=== PATIENT | male | born 1970 | race African-American/Black ===

== ENCOUNTER 2020-06-28 10:43 | Emergency (ER) | payer OTHER ==
[2020-06-28 12:25] LABS: Absolute Lymphocytes (CBC) 1.1 K/uL (0.7-4.9); Basophils % 0.3 % (0-1.3); Hematocrit 43.2 % (39.6-49.0); Lymphocytes % 20.7 % (15.3-44.8); MPV 9.6 fL (7.6-11.3); RBC Red Blood Cell Count 5.37 M/uL (4.33-5.43)
[2020-06-28 12:31] LABS: Protime INR 1.14
[2020-06-28 12:46] LABS: ALT/SGPT 25 U/L (12-78); AST/SGOT 27 U/L (15-37); Albumin 4.4 g/dL (3.4-5.0); Alkaline Phosphatase 56 U/L (45-117); BUN Blood Urea Nitrogen 19 mg/dL (7-18); Bicarbonate 31 mmol/L (21-32); Bilirubin Direct < 0.1 mg/dL (0-0.2); Bilirubin Total 0.3 mg/dL (0.2-1.0); Glucose Level 96 mg/dL (74-106); Magnesium 2.2 mg/dL (1.8-2.4); NT PRO-BNP 19 pg/mL (<125); Potassium 4.3 mmol/L (3.5-5.1); Protein, Total 8.5 g/dL (6.4-8.2); Sodium Level 140 mmol/L (136-145); Troponin (Emerg Dept Use Only) < 0.02 ng/mL (0.0-0.045)
[2020-06-28] MEDS ORDERED: ASPIRIN 81 MG CHEWABLE TABLET ONE (13:12)
--- NOTE | 2020-06-28 13:34 | RAD REPORT ---
EXAM DESCRIPTION: [facility]over[facility] Single View06/28/2020 1:27 pm CLINICAL HISTORY: Chest pain COMPARISON: none FINDINGS: The lungs appear clear of acute infiltrate. The heart is normal size IMPRESSION: No acute abnormalities displayed
[2020-06-28] MEDS ORDERED: KETOROLAC 30 MG/ML INJ ONE (14:18)
--- NOTE | 2020-06-28 16:32 | ER ---
Nurse's Notes [facility] Name: Haris Wong Age: 50 yrs Sex: Male : 1970 Arrival Date: 06/28/2020 Time: 10:45 Bed 15 Private MD: Popeye Edgar E Diagnosis: Other chest pain Presentation: 06/28 10:53 Chief complaint: Patient states: was having LUQ and left rib pain since Saturday , feels iw sore like a bruise, denies injury, went to see Tala Ferreira today and was told to come to ER for abnormal EKG. Coronavirus screen: At this time, the client does not indicate any symptoms associated with coronavirus-19. Ebola Screen: Patient negative for fever greater than or equal to 101.5 degrees Fahrenheit, and additional compatible Ebola Virus Disease symptoms Patient denies exposure to infectious person. Patient denies travel to an Ebola-affected area in the 21 days before illness onset. No symptoms or risks identified at this time. Initial Sepsis Screen: Does the patient meet any 2 criteria? No. Patient's initial sepsis screen is negative. Does the patient have a suspected source of infection? No. Patient's initial sepsis screen is negative. Risk Assessment: Do you want to hurt yourself or someone else? Patient reports no desire to harm self or others. Onset of symptoms was June 26, 2020. 10:53 Method Of Arrival: Wheelchair 10:53 Acuity: SELMA 3 iw Historical: - Allergies: 10:56 No Known Allergies; iw - Home Meds: 10:56 None [Active]; iw - PMHx: 10:56 None; iw - PSHx: 10:56 None; iw - Immunization history:: Adult Immunizations. - Social history:: Smoking status: Patient denies any tobacco usage or history of. Screenin:50 Abuse screen: Denies threats or abuse. Nutritional screening: No deficits noted. tw2 Tuberculosis screening: No symptoms or risk factors identified. Fall Risk None identified. Assessment: 11:50 Reassessment: provider at bedside at this time. tw2 11:55 General: Appears in no apparent distress. slender, well groomed, Behavior is calm, tw2 cooperative, appropriate for age. Pain: Complains of pain in left rib area. Neuro: Level of Consciousness is awake, alert, obeys commands, Oriented to person, place, time, situation. Cardiovascular: Capillary refill < 3 seconds Patient's skin is warm and dry. Respiratory: Airway is patent Respiratory effort is even, unlabored, Respiratory pattern is regular, symmetrical. GI: No signs and/or symptoms were reported involving the gastrointestinal system. Abdomen is flat. : No signs and/or symptoms were reported regarding the genitourinary system. EENT: No signs and/or symptoms were reported regarding the EENT system. Derm: No signs and/or symptoms reported regarding the dermatologic system. Musculoskeletal: Range of motion: intact in all extremities. 12:30 Reassessment: Patient appears in no apparent distress at this time. No changes from tw2 previously documented assessment. Patient and/or family updated on plan of care and expected duration. Pain level reassessed. Patient is alert, oriented x 3, equal unlabored respirations, skin warm/dry/pink. 13:26 Reassessment: Patient appears in no apparent distress at this time. No changes from tw2 previously documented assessment. Patient and/or family updated on plan of care and expected duration. Pain level reassessed. Patient is alert, oriented x 3, equal unlabored respirations, skin warm/dry/pink. 13:32 Reassessment: provider at bedside at this time. tw2 14:21 Reassessment: Patient appears in no apparent distress at this time. No changes from tw2 previously documented assessment. Patient and/or family updated on plan of care and expected duration. Pain level reassessed. Patient is alert, oriented x 3, equal unlabored respirations, skin warm/dry/pink. 15:26 Reassessment: Patient appears in no apparent distress at this time. No changes from tw2 previously documented assessment. Patient and/or family updated on plan of care and expected duration. Pain level reassessed. Patient is alert, oriented x 3, equal unlabored respirations, skin warm/dry/pink. 16:49 Reassessment: Patient appears in no apparent distress at this time. No changes from tw2 previously documented assessment. Patient and/or family updated on plan of care and expected duration. Pain level reassessed. Patient is alert, oriented x 3, equal unlabored respirations, skin warm/dry/pink. Vital Signs: 10:53 BP 129 / 86; Pulse 68; Resp 16; Temp 98.6; Pulse Ox 100% on R/A; Weight 87.54 kg; iw Height 6 ft. 1 in. (185.42 cm); Pain 6/10; 12:30 BP 109 / 69; Pulse 61; Resp 17; Pulse Ox 100% on R/A; tw2 13:26 BP 109 / 73; Pulse 62; Resp 22; Pulse Ox 100% on R/A; tw2 14:21 BP 101 / 71; Pulse 64; Resp 22; Pulse Ox 100% on R/A; tw2 15:26 BP 133 / 73; Pulse 82; Resp 17; Pulse Ox 95% on R/A; tw2 16:48 BP 102 / 71; Pulse 61; Resp 20; Pulse Ox 100% on R/A; tw2 10:53 Body Mass Index 25.46 (87.54 kg, 185.42 cm) iw ED Course: 10:45 Patient arrived in ED. ag5 10:46 Popeye Edgar MD is Private Physician. ag5 10:55 Triage completed. iw 10:56 Arm band placed on. iw 11:45 Bed in low position. Call light in reach. Pulse ox on. NIBP on. tw2 11:47 Eitan Obando PA is PHCP. cp 11:47 Darci Dow MD is Attending Physician. cp 11:50 Janina Sr RN is Primary Nurse. tw2 12:08 Initial lab(s) drawn, by me, sent to lab. Inserted saline lock: 20 gauge in right tw2 antecubital area, using aseptic technique. Blood collected. 13:28 XRAY Chest (1 view) In Process Unspecified. EDMS 16:31 Nirmal Dawson MD is Referral Physician. cp 16:54 No provider procedures requiring assistance completed. IV discontinued, intact, tw2 bleeding controlled, No redness/swelling at site. Pressure dressing applied. Administered Medications: 12:58 Drug: Aspirin Chewable Tablet 324 mg Route: PO; tw2 13:32 Follow up: Response: No adverse reaction tw2 14:05 Drug: TORadol - Ketorolac 15 mg Route: IVP; Site: right antecubital; tw2 16:50 Follow up: Response: No adverse reaction; Pain is decreased tw2 Outcome: 16:31 Discharge ordered by . cp 16:54 Discharged to home ambulatory. tw2 16:54 Condition: stable 16:54 Discharge instructions given to patient, Instructed on discharge instructions, follow up and referral plans. medication usage, Demonstrated understanding of instructions, follow-up care, medications, Prescriptions given X 1. 16:56 Patient left the ED. tw2 Signatures: Dispatcher [employer] Desiree Singleton, RN RN iw Eitan Obando PA PA cp Wise, Tara, RN RN tw2 Shelley Mcmullen 5
--- NOTE | 2020-06-28 16:32 | EDPHYS ---
Physician Documentation [facility] Name: Haris Wong Age: 50 yrs Sex: Male : 1970 Arrival Date: 06/28/2020 Time: 10:45 Bed 15 Private MD: Popeye Edgar E ED Physician Darci Dow HPI: 06/28 12:00 This 50 yrs old Black Male presents to ER via Wheelchair with complaints of Abnormal cp EKG. 12:00 The patient or guardian reports chest pain that is located primarily in the anterior cp chest wall, left. Onset: 2 day(s) ago. The pain does not radiate. The chest pain is described as aching. Duration: The patient or guardian reports a single episode, that is still ongoing, and unchanged. 12:00 Modifying factors: the symptoms are aggravated by palpation and deep inspiration. cp 12:00 The patient has been recently seen by a physician: Dr. Edgar earlier today, with cp similar presenting complaints, and apparently given a diagnosis of abnormal EKG, and was sent to the [facility] Emergency Department for further evaluation. Historical: - Allergies: 10:56 No Known Allergies; iw - Home Meds: 10:56 None [Active]; iw - PMHx: 10:56 None; iw - PSHx: 10:56 None; iw - Immunization history:: Adult Immunizations. - Social history:: Smoking status: Patient denies any tobacco usage or history of. ROS: 12:05 Cardiovascular: Positive for chest pain, of the left lower chest wall. cp 12:05 Eyes: Negative for injury, pain, redness, and discharge. cp 12:05 Constitutional: Negative for body aches, chills, fever, poor PO intake. 12:05 Respiratory: Negative for cough, shortness of breath, wheezing. Exam: 11:45 ECG was reviewed by the Attending Physician. cp 12:10 Constitutional: The patient appears in no acute distress, alert, awake, comfortable, cp non-diaphoretic, non-toxic, well developed, well nourished. 12:10 Head/Face: Normocephalic, atraumatic. cp 12:10 Eyes: Periorbital structures: appear normal, Conjunctiva: normal, no exudate, no injection, Sclera: no appreciated abnormality, Lids and lashes: appear normal, bilaterally. 12:10 ENT: External ear(s): are unremarkable, Nose: is normal, Mouth: Lips: moist, Oral mucosa: moist, Posterior pharynx: Airway: no evidence of obstruction, patent. 12:10 Neck: ROM/movement: is normal, is supple, without pain, no range of motions limitations. 12:10 Chest/axilla: Inspection: normal, Palpation: crepitus, is not appreciated, tenderness, that is mild, of the lateral and below left breast. 12:10 Cardiovascular: Rate: normal, Rhythm: regular, Heart sounds: murmur, not appreciated, Edema: is not appreciated, JVD: is not appreciated. 12:10 Respiratory: the patient does not display signs of respiratory distress, Respirations: normal, no use of accessory muscles, no retractions, labored breathing, is not present, Breath sounds: are clear throughout, no decreased breath sounds, no stridor, no wheezing. 12:10 Abdomen/GI: Inspection: abdomen appears normal, Palpation: abdomen is soft and non-tender, in all quadrants. 12:10 Back: pain, is absent, ROM is normal. 12:10 Skin: no rash present. 12:10 Neuro: Orientation: to person, place \T\ time. Mentation: is normal, Motor: moves all fours, strength is normal. Vital Signs: 10:53 BP 129 / 86; Pulse 68; Resp 16; Temp 98.6; Pulse Ox 100% on R/A; Weight 87.54 kg; iw Height 6 ft. 1 in. (185.42 cm); Pain 6/10; 12:30 BP 109 / 69; Pulse 61; Resp 17; Pulse Ox 100% on R/A; tw2 13:26 BP 109 / 73; Pulse 62; Resp 22; Pulse Ox 100% on R/A; tw2 14:21 BP 101 / 71; Pulse 64; Resp 22; Pulse Ox 100% on R/A; tw2 15:26 BP 133 / 73; Pulse 82; Resp 17; Pulse Ox 95% on R/A; tw2 16:48 BP 102 / 71; Pulse 61; Resp 20; Pulse Ox 100% on R/A; tw2 10:53 Body Mass Index 25.46 (87.54 kg, 185.42 cm) iw MDM: 11:52 Patient medically screened. cp 16:30 Data reviewed: vital signs, nurses notes, lab test result(s), EKG, radiologic studies, cp plain films. 16:30 The patient was given aspirin in the Emergency Department. Special discussion: Based on cp the patient's history, exam, and Dx evaluation, there is no indication for emergent intervention or inpatient Tx. It is understood by the patient/guardian that if the Sx's persist or worsen they need to return immediately for re-evaluation. ED course: VSS. Discussed results of labs. Initial and repeat troponin negative. Will discharge to home for continued monitoring. 06/28 11:53 Order name: Basic Metabolic Panel; Complete Time: 12:47 cp 06/28 12:48 Interpretation: Normal except: BUN 19; GFR 82. 06/28 11:53 Order name: CBC with Diff; Complete Time: 12:47 cp 06/28 11:53 Order name: LFT's; Complete Time: 12:47 cp 06/28 11:53 Order name: Magnesium; Complete Time: 12:47 06/28 11:53 Order name: NT PRO-BNP; Complete Time: 12:47 cp 06/28 11:53 Order name: PT-INR; Complete Time: 12:47 06/28 11:53 Order name: Troponin (emerg Dept Use Only); Complete Time: 12:47 cp 06/28 11:53 Order name: XRAY Chest (1 view); Complete Time: 15:05 06/28 15:05 Interpretation: Report reviewed. 06/28 11:53 Order name: EKG; Complete Time: 11:54 06/28 11:53 Order name: Cardiac monitoring; Complete Time: 12:46 cp 06/28 11:53 Order name: D-Dimer; Complete Time: 12:47 06/28 14:51 Order name: Troponin I cp 06/28 11:53 Order name: EKG - Nurse/Tech; Complete Time: 12:10 cp 06/28 11:53 Order name: IV Saline Lock; Complete Time: 12:11 cp 06/28 11:53 Order name: Labs collected and sent; Complete Time: 12:11 cp 06/28 11:53 Order name: O2 Per Protocol; Complete Time: 12:11 cp 06/28 11:53 Order name: O2 Sat Monitoring; Complete Time: 12:11 cp EC:45 Rate is 66 beats/min. Rhythm is regular. DE interval is prolonged at 204 msec. QRS cp interval is prolonged at 138 msec. QT interval is normal. T waves are Inverted in lead aVL. Administered Medications: 12:58 Drug: Aspirin Chewable Tablet 324 mg Route: PO; tw2 13:32 Follow up: Response: No adverse reaction tw2 14:05 Drug: TORadol - Ketorolac 15 mg Route: IVP; Site: right antecubital; tw2 16:50 Follow up: Response: No adverse reaction; Pain is decreased tw2 Disposition: 06/29 06:30 Co-signature as Attending Physician, Daric Dow MD I agree with the assessment and kdr plan of care. Disposition: 06/28/20 16:31 Discharged to Home. Impression: Other chest pain. - Condition is Stable. - Discharge Instructions: Chest Wall Pain, Aspirin and Your Heart. - Prescriptions for Ibuprofen 800 mg Oral Tablet - take 1 tablet by ORAL route every 8 hours As needed take with food; 30 tablet. - Medication Reconciliation Form, Thank You Letter, Antibiotic Education, Prescription Opioid Use, Work release form form. - Follow up: Nirmal Dawson MD; When: 1 - 2 days; Reason: Recheck today's complaints. - Problem is new. - Symptoms have improved. Signatures: Dispatcher [employer] EDMS Darci Dow MD MD [facility] Desriee Landin RN RN Eitan Obando PA PA cp Janina Sr RN RN tw2 Corrections: (The following items were deleted from the chart) 06/28 16:56 16:31 06/28/2020 16:31 Discharged to Home. Impression: Other chest pain. Condition is tw2 Stable. Forms are Medication Reconciliation Form, Thank You Letter, Antibiotic Education, Prescription Opioid Use. Follow up: Nirmal Dawson; When: 1 - 2 days; Reason: Recheck today's complaints. Problem is new. Symptoms have improved. cp
[2020-06-29 10:11] VITALS: TEMP 98.6
[2020-06-29 10:17] VITALS: BP 102/71; O2SAT 100
== END 2020-06-28 16:56 | disposition home or self-care (01) ==
LOC: ER 10:43
DX: R07.89 Other chest pain (principal)
CPT/HCPCS: 36415; 71045; 80048; 80076; 83735; 83880; 84484; 85025; 85379; 85610; 93005; 96374; 99284